=== PATIENT | male | born 1950 | race Caucasian/White ===

== ENCOUNTER → 2017-03-29 | Outpatient (CLI) | payer MEDICARE, BC ==
[2006-06-06 08:15] VITALS: PULSE 98; TEMP 98.6
== END ==
LOC: COL.RAD 13:41
DX: M46.1 Sacroiliitis, not elsewhere classified (principal)
CPT/HCPCS: G0260; J3301

== ENCOUNTER → 2017-04-26 | Outpatient (CLI) | payer MEDICARE, BC ==
[2006-06-06 08:15] VITALS: PULSE 98; TEMP 98.6
== END ==
LOC: COL.RAD 12:03
DX: M48.07 Spinal stenosis, lumbosacral region (principal); M46.87 Other specified inflammatory spondylopathies, lumbosacral region; M51.17 Intervertebral disc disorders with radiculopathy, lumbosacral region; M41.86 Other forms of scoliosis, lumbar region

== ENCOUNTER → 2017-05-10 | Outpatient (CLI) | payer MEDICARE, BC ==
[~2017-05-10] VITALS: Ht 185.4 cm; Wt 86.5 kg
[2017-05-10 06:55] VITALS: BP 131/84; PULSE 65
[2017-05-10 08:36] VITALS: BP 128/74; PULSE 56
== END ==
LOC: COL.RAD 06:42
DX: M54.16 Radiculopathy, lumbar region (principal); M46.1 Sacroiliitis, not elsewhere classified
CPT/HCPCS: J3301; Q9965

== ENCOUNTER → 2018-04-13 | Outpatient (CLI) | payer MEDICARE, BC ==
[2006-06-06 08:15] VITALS: TEMP 98.6
== END ==
LOC: COL.RAD 07:49
DX: Z13.6 Encounter for screening for cardiovascular disorders (principal); Z87.891 Personal history of nicotine dependence

== ENCOUNTER 2022-04-05 15:00 | Outpatient (RCR) | payer MEDICARE, BC ==
[2006-06-06 08:15] VITALS: TEMP 98.6
== END 2022-04-07 | disposition home or self-care (01) ==
LOC: PT.GENESIS
DX: M51.26 Other intervertebral disc displacement, lumbar region (principal); M47.816 Spondylosis without myelopathy or radiculopathy, lumbar region; M53.3 Sacrococcygeal disorders, not elsewhere classified

== ENCOUNTER 2022-04-19 09:00 | Outpatient (RCR) | payer MEDICARE, BC ==
[2006-06-06 08:15] VITALS: TEMP 98.6
== END 2022-04-29 10:18 | disposition home or self-care (01) ==
LOC: PT.GENESIS 09:00
DX: M47.816 Spondylosis without myelopathy or radiculopathy, lumbar region (principal); M51.26 Other intervertebral disc displacement, lumbar region; M99.04 Segmental and somatic dysfunction of sacral region

== ENCOUNTER 2023-06-27 09:45 | Outpatient (RCR) | payer MEDICARE, BC ==
[2006-06-06 08:15] VITALS: TEMP 98.6
== END 2023-07-07 | disposition home or self-care (01) ==
LOC: PT.GENESIS
DX: S46.219D Strain of muscle, fascia and tendon of other parts of biceps, unspecified arm, subsequent encounter (principal)

== ENCOUNTER 2024-02-01 13:00 | Outpatient (RCR) | payer MEDICARE, BC ==
[2006-06-06 08:15] VITALS: TEMP 98.6
== END 2024-02-05 | disposition home or self-care (01) ==
LOC: PT.GENESIS
DX: M25.551 Pain in right hip (principal); R26.9 Unspecified abnormalities of gait and mobility

== ENCOUNTER 2024-02-24 09:00 | Outpatient (RCR) | payer MEDICARE, BC ==
[2006-06-06 08:15] VITALS: TEMP 98.6
== END 2024-03-07 | disposition home or self-care (01) ==
LOC: PT.GENESIS
DX: M25.551 Pain in right hip (principal); R26.89 Other abnormalities of gait and mobility; M62.81 Muscle weakness (generalized)

== ENCOUNTER → 2024-06-07 | Outpatient (RCR) | payer MEDICARE, BC ==
[2006-06-06 08:15] VITALS: TEMP 98.6
== END | disposition home or self-care (01) ==
LOC: PT.GENESIS
DX: M75.91 Shoulder lesion, unspecified, right shoulder (principal)